=== PATIENT | male | born 1995 | race Caucasian/White ===

== ENCOUNTER 2021-07-26 15:29 | Emergency (ER) | payer OTHER ==
[~2021-07-26] VITALS: Ht 195.6 cm; Wt 95.3 kg
[2021-07-26] MEDS ORDERED: MOTRIN800 MG PEG (19:07)
[2021-07-26] MEDS ORDERED: METHOCARBAMOL750 MG PO (19:07)
== END 2021-07-26 19:30 | disposition home or self-care (01) ==
LOC: ER 16:30
DX: M54.2 Cervicalgia (principal); M54.50 Low back pain, unspecified; S20.319A Abrasion of unspecified front wall of thorax, initial encounter; M25.511 Pain in right shoulder; V43.52XA Car driver injured in collision with other type car in traffic accident, initial encounter; Y92.488 Other paved roadways as the place of occurrence of the external cause
CPT/HCPCS: 71046; 72050; 72100; 99283